=== PATIENT | female | born 1960 | race Caucasian/White ===

== ENCOUNTER 2018-11-30 17:40 | Inpatient (IN) | payer OTHER ==
[~2018-11-30] VITALS: Ht 160 cm; Wt 51.0 kg
[2018-11-30 17:46] VITALS: Ht 160 cm; Wt 51.0 kg
--- NOTE | 2018-11-30 17:55 | NUR ---
PT PRESENTS TO ED BIB AMBULANCE FOR LOW BLOOD SUGAR. PER EMS PT STS SHE TOOK HER BLOOD SUGAR AND IT WAS OVER 200 SO PT TOOK 35 UNITS OF INSULIN. PT WAS AT WORK AND FELT WEAK DURING LUNCH AND CALLED EMS. PER EMS PT BLOOD SUGAR WAS 25 ON ARRIVAL. EMS REPORT GIVING D10 AND PT BLOOD SUGAR WENT UP TO 162. PT STS SHE FEELS WEAK AND TIRED. PT DENIES ANY PAIN, DIZZINESS, OR SOB. PT AAOX4, RESP E/U, ON FULL PERSONAL LINES APPRAISER, NO ACUTE DISTRESS NOTED AT THIS TIME. WILL CONTINUE TO MONITOR.
[2018-11-30 18:24] LABS: ALBUMIN 4.4 g/dL (3.4-5.0); ALKALINE PHOSPHATASE 122 U/L (46-116); ALT/SGPT 29 U/L (14-59); AST/SGOT 23 U/L (15-37); CALCIUM 9.5 mg/dL (8.5-10.1); CARBON DIOXIDE 29.3 mmol/L (21-32); CHLORIDE SERUM 100 mmol/L (98-107); CREATININE SERUM 0.5 mg/dL (0.6-1.0); GFR1 > 60 mL/min; POTASSIUM SERUM 3.4 mmol/L (3.5-5.1); RED CELL DISTRIBUTION WIDTH 13.4 % (11.5-14.5); SODIUM SERUM 139 mmol/L (136-145)
[2018-11-30 18:25] LABS: PLATELET COUNT 420 x10^3mcL (130-400)
[2018-11-30 18:26] LABS: BASOPHIL % 0.3 % (0-2); TOTAL PROTEIN, SERUM 8.6 g/dL (6.4-8.2)
[2018-11-30 18:28] LABS: GLUCOSE SERUM 41 mg/dL (74-106)
--- NOTE | 2018-11-30 19:00 | NUR ---
pt given sandwich and 2% low fat milk cartpm
--- NOTE | 2018-11-30 19:08 | NUR ---
RECIEVED REPORT FROM CECILIA BLOOD FOR FURTHER CARE OF PATIENT.
--- NOTE | 2018-11-30 19:11 | NUR ---
REPORT GIVEN TO CECILIA SHARPE FOR CONTINUITY OF PT CARE.
[2018-11-30 19:36] LABS: microscopic required? YES; urine erythrocyte NEGATIVE (NEGATIVE)
[2018-11-30 19:55] LABS: MAGNESIUM 1.8 mg/dL (1.8-2.4); PHOSPHOROUS 3.6 mg/dL (2.5-4.9)
[2018-11-30 19:56] LABS: AMPHETAMINE QUAL UR NONE DETECTED (See below)
[2018-11-30 19:56] LABS: CHOLESTEROL/HDL RATIO 2.4
--- NOTE | 2018-11-30 20:05 | NUR ---
PROVIDED REPORT TO CECILIA RODRÍGUEZ - TELE FOR FURTHER CARE OF PATIENT TO ROOM 235B
[2018-11-30] MEDS ORDERED: METFORMIN HCL1000 MG PO (20:37)
[2018-11-30] MEDS ORDERED: GOOD SENSE ASPI81 M3 PO (20:38)
[2018-11-30] MEDS ORDERED: HUMALOG100 UNIT/1 SC (20:38)
[2018-11-30 20:46] VITALS: BP 141/70
--- NOTE | 2018-11-30 20:49 | NUR ---
RECEIVED PT FROM ED VIA KESHIA. ORIENTED PT TO ROOM AND SURROUNDINGS. IV NOTED TO LAC PATENT AND INTACT. TELE 4 PLACED ON PT READING NSR. INSTRUCTED PT ON THE USE OF CALL LIGHT FOR ASSISTANCE. ENDORSED PT TO PRIMARY NURSE NANCY
--- NOTE | 2018-11-30 20:50 | NUR ---
PT TAKEN DOWN TO CT VIA WHEEL CHAIR.
--- NOTE | 2018-11-30 20:51 | NUR ---
RECEIVED PT FROM CECILIA RO. PT AOX4, ANSWERS QUESTIONS APPROPR. SPEECH CLEAR. DENIES [place]/DIZZINESS. TELE #4, NSR, HR 92. DENIES CP/PRESSURE. DENIES SOB/DIFFICULTY BREATHING, ON RA. IV TO LAC, INTACT AND PATENT. BED IN LOWEST POSITION. CALL LIGHT WITHIN REACH. WILL CONTINUE TO MONITOR.
--- NOTE | 2018-11-30 21:00 | NUR ---
PT BACK FROM CT.
[2018-11-30] MEDS ORDERED: ZOLOFT50 MG PO (22:15)
[2018-11-30] MEDS ORDERED: LEXAPRO5 M1 PO (22:16)
[2018-11-30] MEDS ORDERED: LISINOPRIL10 MG PO (22:16)
--- NOTE | 2018-11-30 23:00 | NUR ---
NOTIFIED DR. JERONIMO THAT PT DOES NOT HAVE ANY FLUIDS ORDERED FOR HYPOGLYCEMIA. NO FURTHER ORDERS AT THIS TIME. WILL CONTINUE TO MONITOR.
--- NOTE | 2018-12-01 00:33 | NUR ---
SPOT CHECKED BLOOD SUGAR. ACCUCHECK 82. PT REQUESTED SNACK. SNACK PROVIDED.
--- NOTE | 2018-12-01 01:41 | NUR ---
PT RESTING IN BED. RR EVEN AND UNLABORED. NO ACUTE DISTRESS NOTED. CALL LIGHT WITHIN REACH. BED IN LOWEST POSITION. WILL CONTINUE TO MONITOR.
--- NOTE | 2018-12-01 05:53 | NUR ---
CHECKED PT BS 57 AND 64. PUSHED IV D50 PER DR. KING. PT DENIES FEELING ANY SYMPTOMS OF HYPOGLYCEMIA. APPLE JUICE PROVIDED. DR. JERONIMO NOTIFIED.
--- NOTE | 2018-12-01 06:13 | NUR ---
ACCUCHECK NOW 245. WILL CONTINUE TO MONITOR.
[2018-12-01 06:39] LABS: CALCIUM 8.9 mg/dL (8.5-10.1); CARBON DIOXIDE 30.1 mmol/L (21-32); CHLORIDE SERUM 101 mmol/L (98-107); CREATININE SERUM 0.6 mg/dL (0.6-1.0); GFR1 > 60 mL/min; GLUCOSE SERUM 321 mg/dL (74-106); POTASSIUM SERUM 4.1 mmol/L (3.5-5.1); SODIUM SERUM 137 mmol/L (136-145)
[2018-12-01 06:43] VITALS: BP 127/67
[2018-12-01 07:42] LABS: PLATELET COUNT 391 x10^3mcL (130-400); RED CELL DISTRIBUTION WIDTH 12.8 % (11.5-14.5)
[2018-12-01 07:43] LABS: BASOPHIL % 0.4 % (0-2)
--- NOTE | 2018-12-01 07:49 | NUR ---
ASSUMED CARE OF PATIENT. ALERT AND ORIENTED X4. S1 S2 SOUNDS NOTED. PULSES PALPABLE BILATERALLY, NO EDEMA NOTED ON BLE. LUNG SOUNDS CLEAR TO ROOM AIR, NO ADVENTITIOUS BREATH SOUNDS BILATERALLY. BOWEL SOUNDS ACTIVE IN ALL 4 QUADRANTS. VOIDING WITH NO ISSUE, BRP. GENERALIZED WEAKNESS, AMBULATORY WITH STEADY GAIT. SKIN CLEAN DRY INTACT. COMPLAINING OF 4/10 GENERALIZED PAIN. IV ON LFA PATENT AND INFUSING WELL. NO COMPLAINTS OF HEADACHE, DIZZINESS, OR LIGHTHEADEDNESS. NONSKID SOCKS IN PLACE. BED LOCKED AND IN LOWEST POSITION. CALL LIGHT WITHIN REACH. WILL CONTINUE TO MONITOR.
[2018-12-01 09:16] VITALS: BP 137/68
--- NOTE | 2018-12-01 11:42 | NUR ---
PATIENT BS 304. DR. DAMI AARON. UNSURE WHETHER TO PROVIDE INSULIN COVERAGE DUE TO FLUCTATING SUGARS AND DUE TO D10 IVF.
--- NOTE | 2018-12-01 11:47 | NUR ---
DR. SILVER ORDERS TO D/C D10 IVF AND PROVIDE SLIDING SCALE COVERAGE.
[2018-12-01] MEDS ORDERED: EPZICOM1 TAB (13:17)
[2018-12-01] MEDS ORDERED: ADMELOG100 UNIT/1 SQ (13:17)
--- NOTE | 2018-12-01 13:40 | NUR ---
PATIENT SEEN RESTING IN ROOM WITH SON AT BEDSIDE. DENIES LIGHTHEADEDNESS OR DIZZINESS. NO SX OF HYPOGLYCEMIA OR HYPERGLYCEMIA NOTED. NO NEW ISSUES.
[2018-12-01 14:05] VITALS: BP 135/68
[2018-12-01 15:31] VITALS: BP 132/76
--- NOTE | 2018-12-01 15:34 | NUR ---
TRANSFERRED TO [facility]. TELEBOX REMOVED.
--- NOTE | 2018-12-01 17:20 | NUR ---
STUDENT NURSE REPORTING BS OF 71. 1 SERVING OF ORANGE JUICE PROVIDED. RECHECK IN 15 MINUTES; BS 70. ADDITIONAL ORANGE JUICE PROVIDED. BS RECHECK AFTER 15 MINUTES 108. PATIENT REMAINS ASYMPTOMATIC OF GLYCEMIC REACTIONS. REPORT FROM [employer] MANA[employer] THAT HOME HEALTH SERVICES HAVE BEEN ESTABLISHED.
--- NOTE | 2018-12-01 18:42 | NUR ---
BS POC 148. NO COMPLAINTS OF GLYCEMIC SYMPTOMS. NO COMPLAINTS OF PAIN OR DISCOMFORT. FAMILY CURERNTLY AT BEDSIDE. NO NEW ISSUES. WILL ENDORSE CARE TO ONCOMING RN.
[2018-12-01 19:52] VITALS: BP 101/53
--- NOTE | 2018-12-02 03:14 | NUR ---
ASLEEP NO S/SX OF HYPO/HYPERGLYCEMIA, CHECKED AT INTERVALS.
[2018-12-02 05:28] VITALS: BP 111/60
--- NOTE | 2018-12-02 06:20 | NUR ---
SLEPT WELL DURING THE SHIFT, DENIES PAIN OR DISCOMFORTS, NO SIGNIFICANT CHANGES, BS 146 MG/DL, CONT TO MONITOR.
[2018-12-02 06:58] LABS: BASOPHIL % 1.1 % (0-2); PLATELET COUNT 364 x10^3mcL (130-400); RED CELL DISTRIBUTION WIDTH 13.3 % (11.5-14.5)
--- NOTE | 2018-12-02 07:12 | NUR ---
ASSUMED CARE OF PATIENT. ALERT AND ORIENTED X4. S1 S2 SOUNDS NOTED. PULSES PALPABLE BILATERALLY. NO EDEMA ON BLE. LUNG SOUNDS CLEAR ON ROOM AIR, NO ADVENTITIOUS BREATH SOUNDS BILATERALLY. BOWEL SOUNDS ACTIVE IN ALL 4 QUADRANTS. VOIDING WITH NO ISSUE, BRP. GENERALIZED WEAKNESS, BUT AMBULATING INDEPENDENTLY WITH STEADY GAIT. SKIN CLEAN DRY INTACT. NO COMPLAINTS OF PAIN OR DISCOMFORT. IV ON LFA SALINE LOCKED. NO S/SX OF HYPO/HYPERGLYCEMIC REACTIONS. BED LOCKED AND IN LOWEST POSITION. NONSKID SOCKS IN PLACE. CALL LIGHT WITHIN REACH. WILL CONTINUE TO MONITOR.
[2018-12-02 07:15] LABS: CALCIUM 8.9 mg/dL (8.5-10.1); CARBON DIOXIDE 27.8 mmol/L (21-32); CHLORIDE SERUM 106 mmol/L (98-107); CREATININE SERUM 0.5 mg/dL (0.6-1.0); GFR1 > 60 mL/min; GLUCOSE SERUM 174 mg/dL (74-106); PHOSPHOROUS 3.4 mg/dL (2.5-4.9); SODIUM SERUM 143 mmol/L (136-145)
[2018-12-02 09:05] VITALS: BP 135/77
--- NOTE | 2018-12-02 09:43 | NUR ---
PATIENT SEEN RESTING IN ROOM WITH AT BEDSIDE. NO COMPLAINTS OF HYPER/HYPOGLYCEMIC REACTINOS. NO COMPLAINTS OF PAIN OR DISCOMFORT. NO NEW ISSUES.
--- NOTE | 2018-12-02 13:34 | NUR ---
PATIENT SEEN RESTING IN ROOM WITH NO COMPLAINTS OF PAIN OR DISCOMFORT. DENIES ANY SX OF HYPER/HYPOGLYCEMIA. NO NEW ISSUES.
--- NOTE | 2018-12-02 16:13 | NUR ---
LFA IV FLUSHED. PATENT AND INFUSING WELL. SALINE LOCKED.
[2018-12-02 18:35] VITALS: BP 118/65
--- NOTE | 2018-12-02 18:48 | NUR ---
PATIENT SEEN IN ROOM WITH FAMILY AT BEDSIDE. NO COMPLAINTS OF HYPER/HYPOGLYEMIC REACTIONS. NO COMPLAINTS OF PAIN OR DISCOMFORT. WILL ENDORSE CARE TO ONCOMING RN.
--- NOTE | 2018-12-02 20:00 | NUR ---
PT IN BED AAO X4 VERBAL AMBULATORY, CLAIMED FEELING MUCH BETTER TODAY, DENIES PAIN NO DISTRESS, NO S/SX OF HYPO/HYPERGLYCEMIA, IV HEPLOCKED LFA PATENT NON INFIL, V/S STABLE, REINFORCED DIABETIC TEACHING, RECEPTIVE TO ALL TEACHINGS PROVIDED, ATTENDED NEEDS CALL LIGHT AT REACH, WILL PROCEED TO CURRENT PLAN OF CARE.
[2018-12-02 20:04] VITALS: BP 120/66
--- NOTE | 2018-12-03 02:24 | NUR ---
PT ASLEEP NO S/SX OF PAIN OR DISCOMFORTS NOR S/SX OF HYPO/HYPERGLYCEMIA, VISUAL CHECKED AT INTERVALS.
[2018-12-03 05:02] VITALS: BP 121/68
--- NOTE | 2018-12-03 06:40 | NUR ---
PT SLEPT WELL DURING THE SHIFT NO SIGNIFICANT CHANGES, AMBULATES TO THE BATHROOM, 3UNITS REG INSULIN GIVEN PER SLIDING SCALE, DENIES PAIN, WILL ENDORSED TO INCOMING SHIFT FOR F/U CARE.
[2018-12-03 06:55] LABS: CALCIUM 9.1 mg/dL (8.5-10.1); CARBON DIOXIDE 27.7 mmol/L (21-32); CHLORIDE SERUM 107 mmol/L (98-107); CREATININE SERUM 0.5 mg/dL (0.6-1.0); GFR1 > 60 mL/min; GLUCOSE SERUM 177 mg/dL (74-106); SODIUM SERUM 141 mmol/L (136-145)
[2018-12-03 07:28] LABS: BASOPHIL % 0.5 % (0-2); PLATELET COUNT 346 x10^3mcL (130-400); RED CELL DISTRIBUTION WIDTH 13.2 % (11.5-14.5)
--- NOTE | 2018-12-03 07:42 | NUR ---
ASSUMED CARE OF PATIENT. ALERT AND ORIENTED X4. PULSES PALPABLE BILATERALLY. NO EDEMA NOTED. LUNG SOUNDS CLEAR TO ROOM AIR. BOWEL SOUNDS ACTIVE. VOIDING WITH NO ISSUE, BRP. AMBULATING INDEPENDENTLY. SKIN CLEAN DRY INTACT. NO COMPLAINTS OF PAIN. IV ON LFA PATENT, SALINE LOCKED. NO S/SX OF HYPER/HYPOGLYCEMIA. BED LOCKED AND IN LOWEST POSITION. CALL LIGHT WITHIN REACH. WILL CONTINUE TO MONITOR.
[2018-12-03 09:40] VITALS: BP 146/70
--- NOTE | 2018-12-03 09:45 | NUR ---
PATIENT SEEN RESTING IN BED WITH AT BEDSIDE. NO COMPLAINTS OF PAIN OR DISCOMFORT. NO S/SX OF HYPER/HYPOGLYCEMIA. NO NEW ISSUES.
--- NOTE | 2018-12-03 13:04 | NUR ---
PATIENT AND FAMILY UPDATED ON PLAN OF CARE
--- NOTE | 2018-12-03 14:09 | NUR ---
PATIENT SEEN RESTING IN ROOM WITH FAMILY AT BEDSIDE. NO COMPLAINTS OF PAIN OR DISCOMFORT. NO S/SX OF HYPER/HYPOGLYCEMIA. NO NEW ISSUES.
--- NOTE | 2018-12-03 16:53 | NUR ---
IV FLUSHED, REMAINS PATENT AND INTACT.
--- NOTE | 2018-12-03 17:15 | NUR ---
BS 226. 6 UNITS REGULAR INSULIN PROVIDED PER SLIDING SCALE.
[2018-12-03 17:56] VITALS: BP 146/75
--- NOTE | 2018-12-03 18:43 | NUR ---
PATIENT SEEN RESTING IN BED WITH UNLABORED RESPIRATIONS. NO COMPLAINTS OF PAIN OR DISCOMFORT. NO HYPER/HYPOGLYCYEMIC S/SX NOTED. WILL ENDORSE CARE TO ONCOMING RN.
--- NOTE | 2018-12-03 19:14 | NUR ---
SHIFT REASSESSMENT DONE.PATIENT ALERT AND ORIENTED.MAKE NEEDS KNOWN,MAINLY LAO,NEEDS ANTICIPATED.MEDSURG PATIENT.BREATHING EASY.AMBULATORY.HEPLOCK LFA.SKIN INTACT.SCD ORDERED.CALL LIGHT IN REACH.
--- NOTE | 2018-12-03 20:46 | NUR ---
PM MEDS GIVEN,LANTUS GIVEN ORDERED.HS SNACK GIVEN.BLOOD SUGAR 113.
[2018-12-03 20:50] VITALS: BP 130/70
--- NOTE | 2018-12-04 01:00 | NUR ---
CHECKED AT INTERVALS FOR NEEDS AND SAFETY.CALL LIGHT IN REACH.
[2018-12-04 05:40] VITALS: BP 115/7; BP 115/70
--- NOTE | 2018-12-04 05:50 | NUR ---
BLOOD SUGAR 139.PATIENT SLEPT WELL AT NIGHT,NO COMPLAINT.
[2018-12-04 06:19] LABS: CARBON DIOXIDE 26.8 mmol/L (21-32); CHLORIDE SERUM 107 mmol/L (98-107); CREATININE SERUM 0.5 mg/dL (0.6-1.0); GFR1 > 60 mL/min; GLUCOSE SERUM 169 mg/dL (74-106); SODIUM SERUM 142 mmol/L (136-145)
--- NOTE | 2018-12-04 07:15 | NUR ---
RECEIVED PT IN BED A/A/OX4 DENIES [place]. RESP EVEN AND UNLABORED WITH CLEAR BS BILAT. DENIES ANY SOB/CP/PRESSURE AT THIS TIME. NO EDEMA NOTED WITH SL TO LFA. ABD SOFT, NONTENDER WITH ACTIVE BS X4. DENIES ANY N/V AT THIS TIME. VOIDING FREELY. AMBULATORY. TOLERATING CCHO DIET WITH STABLE BS AT 139 THIS AM. CALL LIGHT IN REACH NEEDS ATTENDED TO.
[2018-12-04 08:06] LABS: BASOPHIL % 0.5 % (0-2); PLATELET COUNT 370 x10^3mcL (130-400); RED CELL DISTRIBUTION WIDTH 13.2 % (11.5-14.5)
[2018-12-04 09:17] VITALS: BP 124/65
[2018-12-04] MEDS ORDERED: LANTI SQ (14:27)
[2018-12-04] MEDS ORDERED: HUMULIN R100 U/1 M1 SC (14:32)
[2018-12-04 15:05] VITALS: BP 124/65
--- NOTE | 2018-12-04 16:40 | NUR ---
PT/FAMILY PROVIDED WITH D/C HOME INSTRUCTIONS. GIVEN MEDICATION/PRESCRIPTION EDUCATION. MADE AWARE TO TAKE MEDICATION INDICATED. PT/FAMILY PROVIDED WITH EXTENSIVE VERBAL AND WRITTEN EDUCATION ON REGULAR INSULIN SLIDING SCHEDULE EDUCATION. PT ALREADY TAKES LANTUS AT HOME AND VERBALIZED UNDERSTADING OF INSULIN ADMINISTRATION. PT MADE AWARE SHE MUSH CHECK BS BEFORE MEALS AND BEFORE BEDTIME AND COVER PER SCALE. PT INSTRUCTED TO KEEP A LOG OF BS RESULTS AND INSULIN ADMINISTRATION TO DISCUSS WITH PCP ON NEXT F/U APPT. MADE AWARE OF ORDERED [facility] TO HELP WITH DIABETIC MANAGEMENT. HH WILL CONTACT PT TO SCHEDULE HOME VISIT APPT. PT/FAMILY VERBALIZED UNDERSTANDING OF INSTRUCTIONS. IV D/C'D CATHETER INTACT. PT TRANSPORTED TO [facility] WITH ALL PERSONAL BELONGINGS IN HAND FREE OF ANY APPARENT DISTRESS.
== END 2018-12-04 16:40 | disposition home or self-care (01) | DRG 420 ==
LOC: ED 17:40 → DU 19:29 → MU 19:29 → DU 20:14 → MU 12-01 15:44
PROVIDERS: Emergency Medicine; ADMIT Family Medicine
DX: E11.649 Type 2 diabetes mellitus with hypoglycemia without coma (principal); G93.41 Metabolic encephalopathy; E87.6 Hypokalemia; E78.5 Hyperlipidemia, unspecified; I10 Essential (primary) hypertension; M19.90 Unspecified osteoarthritis, unspecified site; R74.0 Nonspecific elevation of levels of transaminase and lactic acid dehydrogenase [LDH]; D72.829 Elevated white blood cell count, unspecified; Z79.84 Long term (current) use of oral hypoglycemic drugs
CPT/HCPCS: 82962; J3490; Q0092

== ENCOUNTER 2018-12-06 15:43 | Emergency (ER) | payer OTHER ==
[~2018-12-06] VITALS: Ht 162.6 cm; Wt 50.3 kg
[~2018-12-06 15:43] MED LIST: ADMELOG100 UNIT/1 SQ; EPZICOM1 TAB; GOOD SENSE ASPI81 M3 PO; HUMALOG100 UNIT/1 SC; HUMULIN R100 U/1 M1 SC; LANTI SQ; LEXAPRO5 M1 PO; LISINOPRIL10 MG PO; METFORMIN HCL1000 MG PO; ZOLOFT50 MG PO
[2018-12-06 15:59] VITALS: BP 166/83; Ht 162.6 cm; Wt 50.3 kg
== END 2018-12-06 17:13 | disposition home or self-care (01) ==
LOC: ED 15:43
DX: E11.65 Type 2 diabetes mellitus with hyperglycemia (principal); R55 Syncope and collapse; Z02.89 Encounter for other administrative examinations
CPT/HCPCS: 82962